=== PATIENT | female | born 1990 | race Caucasian/White ===

== ENCOUNTER 2016-03-10 16:38 | Emergency (ER) | payer OTHER ==
[~2016-03-10] VITALS: Wt 57.5 kg
[2016-03-10 18:00] LABS: ADD UMIC YES; BASOPHILS % 0.3 % (0.0-2.0); EOSINOPHILS # 0.1 10^3/ul (0.0-0.5); EOSINOPHILS % 1.3 % (0.0-7.0); HEMOGLOBIN 12.3 g/dl (12.0-16.0); LYMPHOCYTES # 2.3 10^3/ul (0.8-2.9); LYMPHOCYTES % 27.7 % (15.0-51.0); MEAN CORPUSCULAR HEMOGLOBIN 28.1 pg (29.0-33.0); MEAN CORPUSCULAR HGB CONC 33.2 g/dl (32.0-37.0); MEAN CORPUSCULAR VOLUME 84.8 fl (82.0-101.0); MEAN PLATELET VOLUME 9.9 fl (7.4-10.4); MONOCYTE # 0.3 10^3/ul (0.3-0.9); MONOCYTES % 3.9 % (0.0-11.0); NEUTROPHIL # 5.6 10^3/ul (1.6-7.5); NEUTROPHILS % 66.8 % (39.0-77.0); PLATELET COUNT 260 10^3/UL (140-440); RED BLOOD COUNT 4.37 10^6/ul (4.20-5.40); RED CELL DISTRIBUTION WIDTH 17.1 % (11.5-14.5); UNCORRECTED WBC 8.4 10^3/ul (4.8-10.8); URINE BILIRUBIN (Dip) NEGATIVE (NEGATIVE); URINE BLOOD (Dip) 3+ (NEGATIVE); URINE GLUCOSE (Dip) NEGATIVE (NEGATIVE); URINE KETONES (Dip) NEGATIVE (NEGATIVE); URINE LEUKOCYTE ESTERASE (Dip) TRACE (NEGATIVE); URINE NITRITE (Dip) NEGATIVE (NEGATIVE); URINE TOTAL PROTEIN (Dip) NEGATIVE (NEGATIVE); URINE UROBILINOGEN (Dip) 0.2 E.U./dL (0.1-1.0); WHITE BLOOD COUNT 8.4 10^3/ul (4.8-10.8)
[2016-03-10 18:01] LABS: CONDITION 1; LH ANALYZER COMMENTS 1
[2016-03-10 18:09] LABS: ALBUMIN 4.5 g/dl (3.3-4.9); POTASSIUM 4.7 mmol/L (3.5-5.1)
[2016-03-10 18:11] LABS: CREATININE 0.54 mg/dl (0.44-1.00)
[2016-03-10 18:12] LABS: ALBUMIN/GLOBULIN RATIO 1.07; BILIRUBIN,INDIRECT 0.2 mg/dl (0-1.1); BILIRUBIN,TOTAL 0.2 mg/dl (0.2-1.3); CALCIUM 10.2 mg/dl (8.4-10.2); TOTAL PROTEIN 8.7 g/dl (6.1-8.1)
[2016-03-10 18:16] LABS: URINE COLOR RED (YELLOW)
--- NOTE | 2016-03-10 18:27 | ERD ---
ER Documentation Chief Complaint Date/Time DATE: 03/10/16 TIME: 18:25 Chief Complaint VAG BLEED FOR THE PAST FEW WKS. MILD ABD CRAMPING. HPI Patient is a 25-year-old female who presents to the ED with vaginal bleeding for 1 week. She states that she had a vaginal delivery one month ago, . She states that she had bleeding after her however after the vaginal bleeding stopped. She states that in the last week she has been having increasing vaginal bleeding. She also complains of pelvic pain for 1 week, and generalized abdominal pain for 1 day. She also complains of headache and dizziness that started today. She denies passing out, blacking out or head trauma. She is not breast-feeding. She denies constipation or diarrhea. Her last bowel movement was last night. She denies dysuria, urgency or frequency. She denies fever or chills. ROS All systems reviewed and are negative except as per history of present illness. Medications Home Meds Active Scripts Nitrofurantoin Monohyd Macrocr* (Macrobid*) 100 Mg Capsr, 100 MG PO BID for 5 Days, CAP Prov:SHERRY CRYSTAL PA-C 03/10/16 Norethindrone-Ethinyl Estradiol ([facility] ()) 0.035-1 Mg Tablet, 1 TAB PO DAILY for 30 Days, TAB Prov:SHERRY CRYSTAL PA-C 03/10/16 Allergies Allergies: Coded Allergies: No Known Allergies (Verified Allergy, Unknown, 02/06/16) PMhx/Soc Medical and Surgical Hx: pt denies Medical Hx, pt denies Surgical Hx History of Surgery: No Anesthesia Reaction: No Hx Neurological Disorder: No Hx Respiratory Disorders: No Hx Cardiac Disorders: No Hx Psychiatric Problems: No Hx Miscellaneous Medical Probl: No Hx Alcohol Use: No Hx Substance Use: No Hx Tobacco Use: No Smoking Status: Never smoker FmHx Family History: No coronary disease, No diabetes, No other Physical Exam Vitals Vital Signs Date Time Temp Pulse Resp B/P Pulse Ox O2 Delivery O2 Flow Rate FiO2 03/10/16 20:25 98.1 80 18 124/78 98 Room Air 03/10/16 19:02 97.8 78 16 115/70 98 03/10/16 16:39 98.2 94 20 140/71 98 Physical Exam GENERAL: Well-developed, well-nourished female. Appears in no acute distress. HEAD: Normocephalic, atraumatic. EYES: Pupils are equally reactive bilaterally. EOMs grossly intact. No conjunctival erythema. ENT: Moist mucous membranes. No uvula deviation. No kissing tonsils. No exudates. NECK: Supple. No lymphadenopathy or thyromegaly. No meningismus. negative kernig. negative brudinski. LUNG: Clear to auscultation bilaterally. No rhonchi, wheezing, rales or coarse breath sounds. HEART: Regular rate and rhythm. No murmurs, rubs or gallops. ABDOMEN: No scars, ecchymosis or rashes noted. Soft, nontender, and nondistended. Positive bowel sounds in all four quadrants. No rebound tenderness , no guarding. (-) McBurneys point tenderness. No CVA tenderness. pelvic pain. BACK: No midline tenderness. Extremities: Equal pulses bilaterally. No peripheral clubbing, cyanosis or edema. No unilateral leg swelling. NEUROLOGIC: Alert and oriented. Moving all four extremities. 5/5 strength in all extremities. Normal speech. Steady gait. SKIN: Normal color. Warm and dry. No rashes or lesions. Capillary refill < 2 seconds Result Diagram: 03/10/16 1750 03/10/161749 Results 24 hrs Laboratory Tests Test 03/10/16 17:47 03/10/16 17:50 Beta HCG, Quantitative < 2.4mIU/ml Alanine Aminotransferase (ALT/SGPT) 28IU/L Albumin 4.5g/dl Albumin/Globulin Ratio 1.07 Alkaline Phosphatase 80IU/L Anion Gap 18 Aspartate Amino Transf (AST/SGOT) 25IU/L Basophils # 0.010^3/ul Basophils % 0.3% Blood Morphology Comment Blood Urea Nitrogen 7mg/dl Calcium Level 10.2mg/dl Carbon Dioxide Level 25mmol/L Chloride Level 103mmol/L Creatinine 0.54mg/dl Direct Bilirubin 0.00mg/dl Eosinophils # 0.110^3/ul Eosinophils % 1.3% Globulin 4.20g/dl Glucose Level 84mg/dl Hematocrit 37.0% Hemoglobin 12.3g/dl Indirect Bilirubin 0.2mg/dl Lipase 133U/L Lymphocytes # 2.310^3/ul Lymphocytes % 27.7% Mean Corpuscular Hemoglobin 28.1pg Mean Corpuscular Hemoglobin Concent 33.2g/dl Mean Corpuscular Volume 84.8fl Mean Platelet Volume 9.9fl Monocytes # 0.310^3/ul Monocytes % 3.9% Neutrophils # 5.610^3/ul Neutrophils % 66.8% Nucleated Red Blood Cells # 0.010^3/ul Nucleated Red Blood Cells % 0.0/100WBC Platelet Count 26359^3/UL Potassium Level 4.7mmol/L Red Blood Count 4.3710^6/ul Red Cell Distribution Width 17.1% Sodium Level 141mmol/L Total Bilirubin 0.2mg/dl Total Protein 8.7g/dl Urine Bacteria FEW Urine Bilirubin NEGATIVE Urine Clarity BLOODY Urine Color RED Urine Glucose NEGATIVE% Urine Hemoglobin 3+ Urine Ketones NEGATIVE Urine Leukocyte Esterase TRACE Urine Microscopic RBC >200/HPF Urine Microscopic WBC 5-10/HPF Urine Nitrite NEGATIVE Urine Specific [place] 1.020 Urine Total Protein NEGATIVE Urine Transitional Epithelial Cells FEW Urine Urobilinogen 0.2 E.U./dL Urine pH 6.0 White Blood Count 8.410^3/ul Procedures/MDM ER COURSE: I kept the patient and/or family informed of laboratory and diagnostic imaging results throughout the emergency room course. EKG, MONITORS, & DIAGNOSTIC IMAGING: [place] [id number] Radiology Main Line: [phone] DIAGNOSTIC IMAGING REPORT Patient: SANDRA DAVID : 1990 Age: 25 Sex: F MR #: [id number] [facility] #: [id number] DOS: 03/10/16 1735 Ordering MD: SHERRY CRYSTAL PA-C Location: [facility]TE Room/Bed: PROCEDURE: US Pelvis. CLINICAL INDICATION: Pelvic pain with vaginal bleeding. TECHNIQUE: Multiple sonographic images of the pelvis were obtained utilizing a transabdominal and endovaginal technique. The images were reviewed on a PACS workstation. COMPARISON: None. FINDINGS: The uterus is visualized and measures 85 x 41 x 67 mm. The uterus is anteverted. The endometrial echo complex is normal and measures 4 mm. There is no evidence for free fluid. The ovaries are not seen. No adnexal masses are noted. IMPRESSION: 1. No acute process in the uterus. 2. The ovaries are not identified. RPTAT: [facility] Physician Basil Date Time Electronically viewed and signed by Physician Basil on 03/10/2016 18:37 RS/ CC: SHERRY CRYSTAL PA-C MEDICATIONS: LAB INTERPRETATION: CBC showed no evidence of systemic infection or severe anemia. CMP showed no evidence of electrolyte abnormalities, severe acidosis, alkalosis , renal failure, or liver disease. Lipase showed no evidence of acute pancreatitis. UA shows trace leukocytes. Urine test positive MEDICAL DECISION MAKING: I have consulted with Dr. Mireles who reviewed the labs. This is a 25-year-old female who presents with vaginal bleeding, pelvic pain, and generalized abdominal pain. . Vital signs were reviewed. Patient is afebrile. Patient is not hypoxic. Patient is not toxic or ill appearing. Patient likely has vaginal bleeding of unknown etiology. She is not anemic. Patient is not breast-feeding and she did have a vaginal delivery. Low suspicion for ovarian torsion, PID, tuboovarian abscess, ectopic , bowel obstruction, pyelonephritis, appendicitis, UTI, nephroliathisis, septic stone, obstructed stone. Low suspicion for ectopic , , molar , endometriosis, PID, placenta previa, placenta abruptia, preeclampsia, eclampsia, anemia, endometritis, cervicitis. I have low suspicion for preeclampsia. Patient's blood pressure is 140/71 at intake however after repeat check, blood pressure was 115/70 and 127/78. She does not have ketones or proteins in her urine and her CMP is within normal limits with no abormalities in liver enzymes. Her test was position, however her BHCG levels were <2. Low suspicion for ACS, AAA, perforated ulcer, bowel obstruction, cholecystitis, choledocholithiasis, cholangitis, pancreatitis, hepatic abscess, appendicitis, diverticulitis, nephrolithiasis, septic stone, obstructed stone. DISCHARGE: At this time, patient is stable for discharge and outpatient management with no new complaints during the ER course. Patient was sent home with [facility] and [facility]. Patient has an appointment in 3 days with her [employer] physician. Patient to follow-up regarding her symptoms. Patient will be discharged home with instructions to recheck for new or worsening symptoms such as fever, nausea , weakness, LOC and to follow up with primary care in the next 1-2 days. Patient was advised to return to the ER for any new or worsening symptoms. Plan was discussed and patient and/or family understands and agrees. Home instructions were given. SHERRY CRYSTAL PA-C Mar 10, 2016 18:27
[2016-03-10 18:28] LABS: BACTERIA,URINE FEW; TRANSITIONAL EPI CELLS,URINE FEW; URINE RBCS >200 /HPF (0)
--- NOTE | 2016-03-10 18:38 | RADRPT ---
PROCEDURE: US Pelvis. CLINICAL INDICATION: Pelvic pain with vaginal bleeding. TECHNIQUE: Multiple sonographic images of the pelvis were obtained utilizing a transabdominal and endovaginal technique. The images were reviewed on a PACS workstation. COMPARISON: None. FINDINGS: The uterus is visualized and measures 85 x 41 x 67 mm. The uterus is anteverted. The endometrial ec ho complex is normal and measures 4 mm. There is no evidence for free fluid. The ovaries are not see n. No adnexal masses are noted. IMPRESSION: 1. No acute process in the uterus. 2. The ovaries are not identified. RPTAT: [facility] Physician Basil Date Time Electronically viewed and signed by Physician Basil on 03/10/2016 18:37 RS/
[2016-03-10] MEDS ORDERED: ORTNOV PO (20:15)
[2016-03-10] MEDS ORDERED: NITR-58 PO (20:16)
[2016-03-10 20:25] VITALS: BP 124/78; PULSE 80; RESP 18; TEMP 98.1
== END 2016-03-10 20:26 | disposition home or self-care (01) ==
LOC: FTE 16:38
DX: O72.2 Delayed and secondary postpartum hemorrhage (principal); R10.2 Pelvic and perineal pain
CPT/HCPCS: 36415; 76830; 76856; 80053; 81001; 81003; 83690; 84702; 85025

== ENCOUNTER 2016-10-24 12:53 | Emergency (ER) | payer OTHER ==
[~2016-10-24] VITALS: Ht 154.9 cm; Wt 59.0 kg
[~2016-10-24 12:53] MED LIST: NITR-58 PO; ORTNOV PO
[2016-10-24 12:56] VITALS: Ht 154.9 cm; Wt 59.0 kg
[2016-10-24] MEDS ORDERED: ONDANSETRON 4 MG INJ IV STA (14:50)
[2016-10-24] MEDS ORDERED: morphine 4 MG/ML VIAL IV STA (14:50)
[2016-10-24] MEDS ORDERED: SOD CHLORIDE 0.9% 1,000 ML IV STA (14:50)
[2016-10-24 15:19] LABS: BASOPHILS % 0.2 % (0.0-2.0); EOSINOPHILS # 0.1 10^3/ul (0.0-0.5); EOSINOPHILS % 0.5 % (0.0-7.0); HEMATOCRIT 40.6 % (37.0-47.0); HEMOGLOBIN 13.1 g/dl (12.0-16.0); LYMPHOCYTES # 1.3 10^3/ul (0.8-2.9); LYMPHOCYTES % 12.2 % (15.0-51.0); MEAN CORPUSCULAR HEMOGLOBIN 28.1 pg (29.0-33.0); MEAN CORPUSCULAR HGB CONC 32.3 g/dl (32.0-37.0); MEAN CORPUSCULAR VOLUME 86.9 fl (82.0-101.0); MEAN PLATELET VOLUME 11.6 fl (7.4-10.4); MONOCYTE # 0.5 10^3/ul (0.3-0.9); MONOCYTES % 4.7 % (0.0-11.0); NEUTROPHILS % 82.1 % (39.0-77.0); PLATELET COUNT 256 10^3/UL (140-415); RED BLOOD COUNT 4.67 10^6/ul (4.20-5.40); RED CELL DISTRIBUTION WIDTH 14.9 % (11.5-14.5); WHITE BLOOD COUNT 10.4 10^3/ul (4.8-10.8)
[2016-10-24] MEDS ORDERED: SOD CHLORIDE 0.9% 1,000 ML IV ONE (15:30)
[2016-10-24 15:31] LABS: ADD UMIC YES; UR ASCORBIC ACID NEGATIVE (NEGATIVE); UR BILIRUBIN (Dip) NEGATIVE (NEGATIVE); UR BLOOD (Dip) 1+ mg/dL (NEGATIVE); UR CLARITY SLIGHTLY CLOUDY (CLEAR); UR COLOR YELLOW (YELLOW); UR GLUCOSE (Dip) NEGATIVE (NEGATIVE); UR KETONES (Dip) NEGATIVE (NEGATIVE); UR LEUKOCYTE ESTERASE (Dip) NEGATIVE Leu/ul (NEGATIVE); UR MUCUS MANY /HPF (NONE SEEN); UR NITRITE (Dip) NEGATIVE (NEGATIVE); UR RBC 9 /HPF (0-5); UR SPECIFIC GRAVITY (Dip) 1.027 (1.003-1.030); UR TOTAL PROTEIN (Dip) NEGATIVE (NEGATIVE); UR UROBILINOGEN (Dip) 1+ mg/dL (NEGATIVE)
[2016-10-24 15:33] LABS: INR 0.87; PROTIME 11.8 Sec (12.2-14.2); PT RATIO 0.9
[2016-10-24 15:34] LABS: PARTIAL THROMBOPLASTIN TIME 31.2 Sec (25.0-35.0)
[2016-10-24 15:43] LABS: ALBUMIN 4.8 g/dl (3.3-4.9); ALBUMIN/GLOBULIN RATIO 1.26; BILIRUBIN,INDIRECT 0.2 mg/dl (0-1.1); BILIRUBIN,TOTAL 0.2 mg/dl (0.2-1.3); CALCIUM 9.6 mg/dl (8.4-10.2); CREATININE 0.61 mg/dl (0.44-1.00); POTASSIUM 3.6 mmol/L (3.5-5.1); TOTAL PROTEIN 8.6 g/dl (6.1-8.1)
--- NOTE | 2016-10-24 15:49 | RADRPT ---
PROCEDURE: Right Upper Quadrant Ultrasound. CLINICAL INDICATION: Abdominal Pain TECHNIQUE: Multiple real-time images were acquired of the patient's right upper quadrant abdomen a nd retroperitoneum utilizing a high resolution transducer. COMPARISON: None FINDINGS: The liver measures 14.9 cm, and demonstrates normal echogenicity. The main portal vein is patent wit h proper directional flow. There is no intrahepatic biliary ductal dilatation. The extrahepatic comm on bile duct measures 3 mm. There is cholelithiasis. There is no gallbladder wall thickening or pericholecystic fluid. The visualized pancreas is unremarkable. The right kidney measures 8.3 cm and demonstrates normal echotexture. There is no right renal calcul us or hydronephrosis. The visualized abdominal aorta and IVC are grossly unremarkable. IMPRESSION: Cholelithiasis without evidence of acute cholecystitis. Normal CBD. RPTAT: EE Physician Louisa Date Time Electronically viewed and signed by Physician Louisa on 10/24/2016 15:49 /
--- NOTE | 2016-10-24 16:26 | ERA ---
ER Documentation Chief Complaint Date/Time DATE: 10/24/16 TIME: 16:23 Chief Complaint EPIGASTRIC PAIN SINCE SUNDAY BURNING SENSATION HPI 25-year-old female presenting with 2 day history of right upper quadrant pain that is worse when she eats. Described as burning. Denies any other symptoms including cough, fever, constipation, diarrhea, vomiting, nausea, inability to tolerate p.o., headache, or meningismus. Patient has no other complaints and describes no other associated manifestations. ROS All systems reviewed and are negative except as per history of present illness. Medications Home Meds Active Scripts Nitrofurantoin Monohyd Macrocr* (Macrobid*) 100 Mg Capsr, 100 MG PO BID for 5 Days, CAP Prov:SHERRY CRYSTAL PA-C 03/10/16 Norethindrone-Ethinyl Estradiol ([facility] ()) 0.035-1 Mg Tablet, 1 TAB PO DAILY for 30 Days, TAB Prov:SHERRY CRYSTAL PA-C 03/10/16 Allergies Allergies: Coded Allergies: No Known Allergies (Verified Allergy, Unknown, 02/06/16) PMhx/Soc History of Surgery: No Anesthesia Reaction: No Hx Neurological Disorder: No Hx Respiratory Disorders: No Hx Cardiac Disorders: No Hx Psychiatric Problems: No Hx Miscellaneous Medical Probl: No Hx Alcohol Use: No Hx Substance Use: No Hx Tobacco Use: No Physical Exam Vitals Vital Signs Date Time Temp Pulse Resp B/P Pulse Ox O2 Delivery O2 Flow Rate FiO2 10/24/16 12:56 99.4 83 18 112/58 98 Physical Exam Const: Well-appearing. No acute distress. Head: Normocephalic, Atraumatic. Eyes: Non-injected; No discharge. EOMI and RACHNA bilaterally. Ears: Normal External Ears, EACs clear, TM normal bilaterally without erythema. Nose: Normal external nose; no discharge, or sinus tenderness. Oral: No oral edema visualized. Mucous membranes moist and pink. Neck: No cervical lymphadenopathy, or masses palpated. Supple ~ No meningismus. Pulm: Good air movement in upper and lower respiratory tracts. Clear to auscultation bilaterally. No dyspnea or stridor. Cardio: Regular rate and rhythm; No murmurs, gallops or rubs auscultated. Radial pulses 2+ bilaterally. No cyanosis noted. Capillary refill less than 2 seconds. Abd: Tender right upper quadrant epigastric areas. Normal bowel sounds. Soft, non distended. MS: Normal motor strength, normal tone with gross examination. Skin: No petechiae or rashes. Good turgor. Back: No midline, flank or CVA tenderness. Ext: No edema. Normal movement of all extremities grossly observed. Neur: Neurovascularly intact bilaterally. Psych: Normal Mood and Affect. Result Diagram: 10/24/16 1505 10/24/16 1505 Results 24 hrs Laboratory Tests Test 10/24/16 15:05 White Blood Count 10.410^3/ul Red Blood Count 4.6710^6/ul Hemoglobin 13.1g/dl Hematocrit 40.6% Mean Corpuscular Volume 86.9fl Mean Corpuscular Hemoglobin 28.1pg Mean Corpuscular Hemoglobin Concent 32.3g/dl Red Cell Distribution Width 14.9% Platelet Count 79674^3/UL Mean Platelet Volume 11.6fl Neutrophils % 82.1% Lymphocytes % 12.2% Monocytes % 4.7% Eosinophils % 0.5% Basophils % 0.2% Nucleated Red Blood Cells % 0.0/100WBC Neutrophils # (Manual) 8.610^3/ul Lymphocytes # 1.310^3/ul Monocytes # 0.510^3/ul Eosinophils # 0.110^3/ul Basophils # 0.010^3/ul Nucleated Red Blood Cells # 0.010^3/ul Prothrombin Time 11.8Sec Prothrombin Time Ratio 0.9 INR International Normalized Ratio 0.87 Activated Partial Thromboplast Time 31.2Sec Urine Color YELLOW Urine Clarity SLIGHTLY CLOUDY Urine pH 5.0 Urine Specific [place] 1.027 Urine Ketones NEGATIVEmg/dL Urine Nitrite NEGATIVEmg/dL Urine Bilirubin NEGATIVEmg/dL Urine Urobilinogen 1+mg/dL Urine Leukocyte Esterase NEGATIVELeu/ul Urine Microscopic RBC 9/HPF Urine Microscopic WBC 2/HPF Urine Mucus MANY/HPF Urine Hemoglobin 1+mg/dL Urine Glucose NEGATIVEmg/dL Urine Total Protein NEGATIVEmg/dl Sodium Level 140mmol/L Potassium Level 3.6mmol/L Chloride Level 103mmol/L Carbon Dioxide Level 26mmol/L Anion Gap 15 Blood Urea Nitrogen 8mg/dl Creatinine 0.61mg/dl Glucose Level 90mg/dl Calcium Level 9.6mg/dl Total Bilirubin 0.2mg/dl Direct Bilirubin 0.00mg/dl Indirect Bilirubin 0.2mg/dl Aspartate Amino Transf (AST/SGOT) 25IU/L Alanine Aminotransferase (ALT/SGPT) 31IU/L Alkaline Phosphatase 73IU/L Total Protein 8.6g/dl Albumin 4.8g/dl Globulin 3.80g/dl Albumin/Globulin Ratio 1.26 Lipase 129U/L Current Medications Medications (Trade) Dose Ordered Sig/Eric Route PRN Reason Start Time Stop Time Status Last Admin Dose Admin Sodium Chloride (NS) 1,000 ml @ 1,000 mls/hr Q1H STAT IV 10/24/16 14:50 10/24/16 15:38 DC 10/24/16 15:36 Morphine Sulfate (morphine) 4 mg ONCE STAT IV 10/24/16 14:50 10/24/16 14:57 DC 10/24/16 15:36 Ondansetron HCl 4 mg 4 mg ONCE STAT IV 10/24/16 14:50 10/24/16 14:57 DC 10/24/16 15:36 Sodium Chloride (NS) 1,000 ml @ 1,000 mls/hr Q1H ONCE IV 10/24/16 15:30 10/24/16 16:29 Procedures/MDM 25-year-old female with a chief point of right upper quadrant pain as described in history and physical examination. Laboratory tests including CBC, CMP, lipase were ordered. All were within normal limits. Urine test was negative. Urinalysis was unremarkable. Little suspicion for pyelonephritis. Ultrasound was obtained and showed cholelithiasis. Most likely diagnosis at this time is cholelithiasis versus abdominal pain of unknown etiology. I will suspicion for ascending cholangitis, acute pancreatitis, cholecystitis,acute abdomen, serious bacterial illness, or other emergent pathologies. I have spoke with the patient regarding their condition and future management. They have verbally responded that they understand their status and treatment plan. The patients vitals are stable, and their current condition is appropriate for discharge. The patient will be given discharge instructions with return precautions. Departure Diagnosis: Primary Impression: Cholelithiasis Qualified Code: K80.50 - Calculus of bile duct without cholecystitis and without obstruction Additional Impression: Abdominal pain Qualified Code: R10.11 - Right upper quadrant abdominal pain Condition: Stable Patient Instructions: Gallstones Additional Instructions: Follow up with your PCP within the next 1-3 days for a more thorough evaluation and a possible referral to a specialist. Return the the emergency department immediately if symptoms worsen or change. If you have any questions regarding medications, ask your pharmacist or us before you leave. If any adverse reactions occur while taking your medications, discontinue the treatment and return to the emergency department immediately. Take your medications as directed, and complete the entire course of treatment. YASH ESPARZA PA-C Oct 24, 2016 16:26
== END 2016-10-24 16:59 | disposition home or self-care (01) ==
LOC: FTE 12:53
DX: K80.50 Calculus of bile duct without cholangitis or cholecystitis without obstruction (principal); R10.11 Right upper quadrant pain
CPT/HCPCS: 36415; 76705; 80053; 81001; 83690; 85025; 85610; 85730; 96374; 96375; J2270; J2405; J7030; Z7502

== ENCOUNTER 2017-01-05 20:34 | Emergency (ER) | payer OTHER ==
[~2017-01-05] VITALS: Ht 147.3 cm; Wt 58.2 kg
[2017-01-05 20:52] VITALS: Ht 147.3 cm; Wt 58.2 kg
[2017-01-05] MEDS ORDERED: KETOROLAC 60 MG INJ IM STA (22:20)
[2017-01-06] MEDS ORDERED: HYDR-906 PO (00:21)
[2017-01-06] MEDS ORDERED: NAPR-688 PO (00:21)
--- NOTE | 2017-01-06 00:32 | ERD ---
ER Documentation Chief Complaint Chief Complaint headache/cough/both ears x 2 days HPI This 26-year-old female presents with a cough, bilateral ear pain, sore throat, runny nose and headache for the last 2 days. She also has generalized body aches. She has had no neurological symptoms. She is otherwise healthy. He came on gradually is not the worst of her life. ROS All systems reviewed and are negative except as per history of present illness. Medications Home Meds Active Scripts Hydrocodone/Acetaminophen ([place] 5-325 Tablet) 1 Each Tablet, 1 EACH PO Q6 for SEVERE PAIN LEVEL 7-10, #10 TAB Prov:JEANA BECK DO 01/06/17 Naproxen* (Naproxen*) 500 Mg Tablet, 500 MG PO BID, #20 TAB Prov:JEANA BECK DO 01/06/17 Nitrofurantoin Monohyd Macrocr* (Macrobid*) 100 Mg Capsr, 100 MG PO BID for 5 Days, CAP Prov:SHERRY CRYSTAL PA-C 03/10/16 Norethindrone-Ethinyl Estradiol ([facility] ()) 0.035-1 Mg Tablet, 1 TAB PO DAILY for 30 Days, TAB Prov:SHERRY CRYSTAL PA-C 03/10/16 Allergies Allergies: Coded Allergies: No Known Allergies (Verified Allergy, Unknown, 01/05/17) PMhx/Soc Medical and Surgical Hx: pt denies Medical Hx, pt denies Surgical Hx History of Surgery: No Anesthesia Reaction: No Hx Neurological Disorder: No Hx Respiratory Disorders: No Hx Cardiac Disorders: No Hx Psychiatric Problems: No Hx Miscellaneous Medical Probl: No Hx Alcohol Use: No Hx Substance Use: No Hx Tobacco Use: No Physical Exam Vitals Vital Signs Date Time Temp Pulse Resp B/P Pulse Ox O2 Delivery O2 Flow Rate FiO2 01/05/17 20:52 99.5 84 20 117/63 100 Physical Exam Const: [] Mild distress, appears uncomfortable Head: Atraumatic Eyes: Normal Conjunctiva EOMI, PERRLA ENT: Normal External Ears, Nose and Mouth. Oropharynx within normal limits, tympanic membranes completely clear bilaterally. Neck: Full range of motion..~ No meningismus. Resp: Clear to auscultation bilaterally Cardio: Regular rate and rhythm, no murmurs Abd: Soft, non tender, non distended. Normal bowel sounds Skin: No petechiae or rashes Back: No midline or flank tenderness Ext: No cyanosis, or edema Neur: Awake and alert, is 3, cranial 2 through 12 intact, no cerebellar deficits, normal gait Psych: Normal Mood and Affect Results 24 hrs Current Medications Medications (Trade) Dose Ordered Sig/Eric Route PRN Reason Start Time Stop Time Status Last Admin Dose Admin Ketorolac Tromethamine (Toradol) 60 mg ONCE STAT IM 01/05/17 22:20 01/05/17 22:22 DC 01/05/17 23:08 Procedures/MDM Viral syndrome and 26-year-old female. Physical exam is completely negative except for her appearing to have some malaise. Signs of dehydration. I have very low suspicion for serious bacterial infection such as pneumonia or angitis. She was given Toradol injection after negative test which made her feel much better. Her headache was resolved. Going to discharge her with naproxen was a few [place] for any severe pain while she gets over this illness. Told return to the hospital if she has any concerning symptoms or difficult to control pain, excessive cough or shortness of breath. Departure Diagnosis: Primary Impression: Viral syndrome Additional Impression: Acute URI Condition: Stable Patient Instructions: Viral Syndrome (Adult) Additional Instructions: Call your primary care doctor TOMORROW for an appointment during the next 2-3 days.See the doctor sooner or return here if your condition worsens before your appointment time. JEANA BECK DO Jan 06, 2017 00:32
[2017-01-06 00:45] VITALS: PULSE 74; RESP 20; TEMP 98.8
== END 2017-01-06 00:42 | disposition home or self-care (01) ==
LOC: FTE 20:34
DX: B34.9 Viral infection, unspecified (principal); J06.9 Acute upper respiratory infection, unspecified
CPT/HCPCS: 96372; J1885; Z7502